=== PATIENT | female | born 1970 | race Caucasian/White ===

== ENCOUNTER 2017-09-07 15:11 | Emergency (ER) | payer OTHER ==
[2017-09-07 15:31] VITALS: TEMP 97.6
[2017-09-07] MEDS ORDERED: TETANUS,DIPHTHERIA,PERTUSSIS 1 EA SYG IM ONE (15:34)
[2017-09-07] MEDS ORDERED: cefTRIAXone SODIUM 1 GM VIAL IM ONE (15:34)
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
--- NOTE | 2017-09-07 16:42 | CT ---
PROCEDURE: Maxillofacial Clinical History: abscess Indication: Same as above Comparison: None Technique: CT of the facial bones was done, without intravenous contrast in the axial, sagittal and coronal planes. This exam was performed according to our departmental dose-optimization program, which includes automated exposure control, adjustment of the mA and/or KV according to the patient's size and/or use of iterative reconstruction technique. Findings: There is no CT evidence of acute fractures or dislocations involving the facial bones. There is presence of a 3.5 x 2.1 x 2.6 cm thick walled subcutaneous abscess in the left side of the face adjacent to the left side of the mandible and draining openly into the adjacent skin surface. A few enlarged reactive lymph nodes are seen in the sublingual region and in the left temporomandibular region The paranasal sinuses show mild mucoperiosteal thickening. There is no visualization of air fluid levels in the paranasal sinuses. The visualized cervical spine shows moderate amount of degenerative change, with intact craniovertebral junction . Impression: There is presence of a 3.5 x 2.1 x 2.6 cm thick walled subcutaneous abscess in the left side of the face adjacent to the left side of the mandible and draining openly into the adjacent skin surface. A few enlarged reactive lymph nodes are seen in the sublingual region and in the left temporomandibular region Location of Interpretation: Teleradiology. Electronically signed by: Kali Garcia MD 09/07/2017 4:40 PM CDT Workstation: [id number]
[2017-09-07] MEDS ORDERED: CHLORHEXIDINE GLUCONATE 4 % 15 ML UD TOP ONE (16:44)
[2017-09-07 17:35] VITALS: BP 124/73; O2SAT 100
== END 2017-09-07 17:00 | disposition home or self-care (01) ==
LOC: ER 15:11
DX: L02.01 Cutaneous abscess of face (principal); M47.812 Spondylosis without myelopathy or radiculopathy, cervical region; E07.9 Disorder of thyroid, unspecified; Z23 Encounter for immunization; Z87.891 Personal history of nicotine dependence; Z88.2 Allergy status to sulfonamides; Z85.828 Personal history of other malignant neoplasm of skin
CPT/HCPCS: 36415; 70486; 80048; 83605; 85025; 90471; 90715; J0696